=== PATIENT | female | born 1955 | race African-American/Black ===

== ENCOUNTER 2017-06-17 11:12 | Emergency (ER) | payer OTHER ==
--- NOTE | ~2017-06-17 | CR72 ---
[facility]. [facility] A Service of [facility] & [facility] RADIOLOGY TEXT RESULTS PATIENT: NOAH CONNORS LOCATION: SED : 59 UNIT #: [id number] AGE: [address]: Rubens Reyna MD SEX: F ORDER DR: [id number] [address] [address] [id number] MR#: [id number] Acc #: [id number] NAME: NOAH CONNORS : 1955 SEX: F STUDY DATE/TIME: 06/17/2017 11:24 UNIT: SED ROOM: STUDY DESCRIPTION: CR Chest Single View Portable Attending Physician: Rubens Reyna M.D. Ordering Physician: Rubens Reyna M.D. Primary Care Physician: Vicky Irvin M.D. MEDICAL IMAGING REPORT This report is preliminary unless electronic signature is present. EXAM Chest portable 06/17/2017 11:24 hours HISTORY A 62-year-old woman with mid chest pain for 2-3 days. Cough, congestion for 1 week. COMPARISON 08/29/2016 FINDINGS Single portable upright view demonstrates cardiomegaly unchanged. There is a stable tortuous aorta. The pulmonary vascularity is normal. The lungs are clear, and there are no effusions. IMPRESSION Stable mild to moderate enlargement the cardiac silhouette with minimally tortuous aorta. The lungs are clear and there are no effusions. Dictated by... Carlita Lazaro M.D. THIS IS AN ELECTRONICALLY VERIFIED REPORT Carlita Lazaro M.D. at 06/17/2017 2:34 PM DENISE/alphonso TD: 06/17/2017 14:15 JOB #: [id number] MEDICAL IMAGING REPORT Page 1 of 1
--- NOTE | ~2017-06-17 | EKG ---
PATIENT: NOAH CONNORS UNIT #: [id number] Ventricular Rate: 63 BPM Atrial Rate: 63 BPM P-R Interval: 192 ms QRS Duration: 92 ms Q-T Interval: 422 ms QTC Calculation(Bezet): 431 ms P [place]: 44 degrees Calculated R [place]: -18 degrees Calculated T [place]: 12 degrees Diagnosis Line: Normal sinus rhythm Diagnosis Line: T wave abnormality, consider anterior ischemia Diagnosis Line: Abnormal ECG Diagnosis Line: When compared with ECG of 29-AUG-2016 13:49, Diagnosis Line: No significant change was found Diagnosis Line: Confirmed by ARCHIE MERCER MD ([id number]) on 06/18/2017 Diagnosis Line: 4:31:04 PM INTERPRETING MD: RUSLAN RICHARDS
[~2017-06-17 11:12] MED LIST: ALBUTEROL17 GM INH; ASPIRIN PO; ASPIRIN81 MG PO; CALAN SR PO; CALAN SR120 MG PO; CIPRO PO; DIOVAN PO; DIOVAN160 MG PO; HCTZ PO; HYDROCHLOROTH12.5 M1 PO; HYDROCODON-ACE1 EAC7 PO; LORTAB 7.5-5001 TAB PO; METOPROLOL SUC200 MG PO; OMEPRAZOLE40 M1 PO; OMEPRAZOLE40 MG PO; PRAVACHOL20 MG PO; PRILOSEC PO; SKELAXIN PO; TOPROL XL PO; TOPROL XL200 MG PO; VALSARTAN-HCTZ1 EAC3 PO; VICODIN 5/1 TAB 5/50 PO; ZYRTEC PO; ZYRTEC10 M2 PO
[2017-06-17 11:33] LABS: BASOPHIL# 0.1 X10e3 (0-0.3); BASOPHIL% 1.7 % (0-2.5); EOSINOPHIL# 0.1 X10e3 (0-0.7); EOSINOPHIL% 2.1 % (0.0-7.0); HEMATOCRIT 44.1 % (35.0-45.0); LYMPHOCYTE# 1.8 X10e3 (1.0-3.5); LYMPHOCYTE% 39.5 % (17.0-45.0); MEAN CELL VOLUME 93.2 FL (83-96); MEAN CORPUSCULAR HEMOGLOBIN 31.7 PG (28-34); MEAN PLATELET VOLUME 9.5 FL (6.5-11.5); MONOCYTE# 0.3 X10e3 (0-1.0); NEUTROPHIL# 2.2 X10e3 (1.5-7.1); NEUTROPHIL% 49.7 % (40-75); PLATELET COUNT 236 X10e3 (140-420); RED BLOOD COUNT 4.73 X10e (3.90-5.30); RED CELL DISTRIBUTION WIDTH 13.8 % (11.0-15.5); WHITE BLOOD COUNT 4.4 X10e3 (4.0-10.5)
[2017-06-17 11:44] LABS: POC - CKMB 1.4 ng/mL (0.0-7.9); POC - MYOGLOBIN 71.4 ng/mL (0.0-169.0); POC - TROPONIN <0.05 ng/mL (<=0.05)
[2017-06-17 11:57] LABS: DIFF IND NO; PROTHROMBIN TIME (PATIENT) 11.4 SECONDS (9.5-12.4)
[2017-06-17 12:04] LABS: PARTIAL THROMBOPLASTIN TIME 26.8 SECONDS (25.6-38.1)
[2017-06-17 12:06] LABS: ALBUMIN SERUM 4.1 g/dL (3.5-5.0); BILIRUBIN, DIRECT 0.1 mg/dL (0.0-0.2); BILIRUBIN,INDIRECT 0.7 mg/dL (0.0-0.9); BILIRUBIN,TOTAL 0.8 mg/dL (0.2-2.0); BUN/CREATININE RATIO 13.75; CALCIUM SERUM 9.4 mg/dL (8.4-10.2); CREATININE SERUM 0.8 mg/dL (0.6-1.4); POTASSIUM 3.7 mmol/L (3.5-5.1); PROTEIN TOTAL SERUM 6.9 g/dL (6.0-8.3)
== END 2017-06-17 15:31 | disposition home or self-care (01) ==
LOC: SED 11:12
PROVIDERS: Emergency Medicine
DX: R07.9 Chest pain, unspecified (principal); I10 Essential (primary) hypertension; Z91.040 Latex allergy status; Z88.1 Allergy status to other antibiotic agents; Z88.8 Allergy status to other drugs, medicaments and biological substances; Z79.82 Long term (current) use of aspirin; Z79.899 Other long term (current) drug therapy
CPT/HCPCS: 36415; 71010; 80048; 80076; 82553; 83874; 84484; 85025; 85610; 85730; 93005; 99285

== ENCOUNTER → 2017-06-25 | Outpatient (CLI) | payer OTHER ==
--- NOTE | ~2017-06-25 | US98 ---
[facility] A Service of [facility] & [facility] RADIOLOGY TEXT RESULTS PATIENT: NOAH CONNORS LOCATION: [facility] : 59 UNIT #: [id number] AGE: [address]: ISI MEDINA APRN SEX: F ORDER DR: [id number] [facility] [address] [place], [place] [address] [id number] O MR#: [id number] Acc #: [id number] NAME: NOAH CONNORS : 1955 SEX: F STUDY DATE/TIME: 06/25/2017 11:46 UNIT: [facility] ROOM: STUDY DESCRIPTION: US Pelvic Non-OB Complete Attending Physician: Isi Medina Aprn Referring Physician: Isi Medina Aprn Ordering Physician: Isi Medina Aprn Primary Care Physician: Isi Medina Aprn MEDICAL IMAGING REPORT This report is preliminary unless electronic signature is present EXAMINATION Transabdominal and transvaginal pelvic ultrasound. DATE 06/25/2017 HISTORY 62-year-old female with diffuse pelvic pain for a couple of months. Family history of ovarian cancer in a maternal grandmother. Last menstrual period 2013. . COMPARISON Pelvic ultrasound 09/18/2013. FINDINGS Transabdominal imaging was performed for generalized visualization of pelvic structures while transvaginal imaging was performed for more detailed evaluation of the adnexa. The uterus measures 7.6 x 3.6 x 4.8 cm. The uterine myometrium is heterogeneous. Two foci of rounded echogenicity and acoustic shadowing are demonstrated within the uterine myometrium consistent with the appearance of fibroids. An intramural fibroid is seen within the uterine fundus measuring 1.2 x 1.4 x 1.5 cm. A second fibroid within the posterior mid uterine body measures 1.9 x 2.1 x 2.2 cm. Endometrial bilayer measures 5 mm thickness. Trace amount of fluid is demonstrated within the endocervical canal. Right ovary measures 2.3 x 1.4 cm and demonstrates normal color spectral Doppler flow (only visualized in the longitudinal but not in the transverse plane). The left ovary cannot be satisfactorily visualized either transabdominally or transvaginally, likely obscured by bowel gas. [facility]. 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 IMPRESSION 1. Two intramural uterine fibroids are demonstrated. One of these in the posterior mid uterine body measures about 5 mm larger than on the previous 2013 ultrasound, while the other in the fundus is stable. No new myometrial abnormalities are identified. 2. Normal sonographic appearance of the right ovary. Normal flow is documented to the right ovary. 3. The left ovary is not visualized, obscured by bowel gas. 4. No pelvic free fluid is seen. 5. Endometrial bilayer thickness 5 mm, which is at upper limits normal range in a postmenopausal patient which is impression was a is within normal limits in a postmenopausal patient with no history of endometrial bleeding. Dictated by... Chasity Kauffman M.D. THIS IS AN ELECTRONICALLY VERIFIED REPORT Chasity Kauffman M.D. at 07/01/2017 8:37 AM MARIAN/solitario TD: 06/25/2017 20:14 JOB #: [id number] MEDICAL IMAGING REPORT Page 1 of 1 COPY
== END | disposition home or self-care (01) ==
LOC: CWCC 11:08
DX: R10.2 Pelvic and perineal pain (principal); D25.1 Intramural leiomyoma of uterus; Z78.0 Asymptomatic menopausal state
CPT/HCPCS: 76830; 76856